=== PATIENT | male | born 1965 | race African-American/Black ===

== ENCOUNTER 2023-11-26 23:15 | Emergency (ER) | payer OTHER ==
[2023-11-26 23:26] VITALS: BP 159/80; PULSE 87; RESP 20; TEMP 98.5; BMI 31.6
[2023-11-27] MEDS ORDERED: DOXYCYCLINE HYCLATE 100 MG CAPSULE PO ONE (00:12)
[2023-11-27] MEDS: DOXYCYCLINE HYCLATE 100 MG CAPSULE PO ONE (00:15)
== END 2023-11-27 00:38 | disposition home or self-care (01) ==
LOC: JER 23:15
DX: M25.472 Effusion, left ankle (principal)
CPT/HCPCS: 87070; 87186; 87205; 99283-25

== ENCOUNTER 2024-11-03 05:19 | Day surgery (SDC) | payer OTHER ==
[2024-10-30 10:35] VITALS: BMI 30.8
[2024-11-03] MEDS ORDERED: KETOROLAC TROMETHAMINE 30 MG/1 ML VIAL ONE (07:54)
[2024-11-03] MEDS ORDERED: ONDANSETRON 4 MG/2 ML VIAL ONE (07:54)
[2024-11-03] MEDS ORDERED: MIDAZOLAM HCL 2 MG/2 ML SINGLE DOSE VIAL ONE (07:55)
[2024-11-03] MEDS ORDERED: PROPOFOL 20 ML ONE (08:28)
[2024-11-03 09:41] VITALS: BP 120/70; PULSE 72
[2024-11-03 09:42] VITALS: RESP 20; TEMP 97
== END 2024-11-03 09:46 | disposition home or self-care (01) ==
LOC: JASU-SURG 05:19
PROVIDERS: ATTEND Urology
PROC: 0TF4XZZ Fragmentation in Left Kidney Pelvis, External Approach (ICD-10-PCS; principal; 2024-11-03 08:00)
DX: N20.0 Calculus of kidney (principal)